=== PATIENT | male | born 1975 | race Hispanic/Latino ===

== ENCOUNTER → 2020-05-11 | Day surgery (SDC) | payer OTHER ==
[~2020-05-11] MED LIST: BUPROPION XL150 MG PO; DICLOFENAC 1% TOP; FENTANYL CITRATE/PF 100MCG/2 ML INJ ONE; GABAPENTIN300 MG PO; GLIMEPIRIDE2 MG PO; IBUPROFEN800 MG PO; LEXAPRO20 MG PO; LIPITOR10 MG PO; METFORMIN HCL500 MG PO; MIDAZOLAM HCL 2 MG/2 ML VIAL ONE; OMEPRAZOLE40 MG PO; PANTOPRAZOLE 40 MG 10ML VIAL ONE; PROPOFOL IV EMULSION 10 MG/ML 20 ML VIAL ONE; TYLENOL EXTRA500 MG PO; VIT C PO; VIT D PO; [UNRECOGNIZED DRUG - OTHER] PO
[2020-05-11 10:05] VITALS: BP 104/71
== END | disposition home or self-care (01) ==
LOC: OR 07:32
PROVIDERS: ATTEND Internal Medicine Gastroenterology
DX: R10.11 Right upper quadrant pain (principal); K29.70 Gastritis, unspecified, without bleeding; K20.90 Esophagitis, unspecified without bleeding; K21.9 Gastro-esophageal reflux disease without esophagitis; K59.00 Constipation, unspecified; I10 Essential (primary) hypertension; E78.5 Hyperlipidemia, unspecified; E11.9 Type 2 diabetes mellitus without complications; R16.0 Hepatomegaly, not elsewhere classified; K82.8 Other specified diseases of gallbladder; F32.9 Major depressive disorder, single episode, unspecified; Z01.810 Encounter for preprocedural cardiovascular examination; Z79.84 Long term (current) use of oral hypoglycemic drugs; Z86.16 Personal history of COVID-19
CPT/HCPCS: 36415; 43239; 82948; 93005; C9113; J2250; J2704; J3010

== ENCOUNTER → 2020-05-16 | Outpatient (CLI) | payer OTHER ==
[~2020-05-16] MED LIST changes: -FENTANYL CITRATE/PF 100MCG/2 ML INJ ONE; -MIDAZOLAM HCL 2 MG/2 ML VIAL ONE; -PANTOPRAZOLE 40 MG 10ML VIAL ONE; -PROPOFOL IV EMULSION 10 MG/ML 20 ML VIAL ONE
== END ==
LOC: NM 08:55
PROVIDERS: ATTEND Internal Medicine Gastroenterology
DX: R10.12 Left upper quadrant pain (principal); R10.10 Upper abdominal pain, unspecified; R16.0 Hepatomegaly, not elsewhere classified; K82.8 Other specified diseases of gallbladder
CPT/HCPCS: 78227; A9537